=== PATIENT | female | born 1940 | race Caucasian/White ===

== ENCOUNTER 2022-03-11 09:03 | Observation (INO) ==
[2022-03-11] MEDS ORDERED: MoRPHine SULFATE 4 MG/ML 1 ML CARP\\VIAL IV STA (09:10)
[2022-03-11] MEDS ORDERED: ONDANSETRON INJ 2 MG/ML 2 ML VIAL IV STA (09:10)
--- NOTE | 2022-03-11 09:13 | Emergency Department Note ---
Impression & Plan Rib fractures, Adnexal mass, Fall ED Provider Note NAME: KAUR DANIELS AGE: 81 SEX: F : 1940 ARRIVES VIA: Ambulance INFORMANT: Patient ED PROVIDER(S): Renny Esparza DO CHIEF COMPLAINT: fall right chest wall pain HPI: Patient is a 81-year-old female who presents to the ER who was at the [facility] [place]. She got up in the middle of the night and lost her balance and fell onto her right side. She is having severe 10 out of 10 pain on the right ribs and right belly. She denies any bilateral hip knee or foot pain. No upper extremity pain. She does not believe she hit her head but does have a little bit of a headache on the right side. Denies any tingling or numbness. No other exacerbating or remitting factors other than pain is significantly worse with movement and improves with rest. Denies blood thinners. ROS: See above HPI for pertinent positives & negatives. A total of 10 systems reviewed and were otherwise negative. PAST MEDICAL HISTORY:See Below PAST SURGICAL HISTORY:See Below FAMILY HISTORY:See Below SOCIAL HISTORY:See Below HOME MEDICATIONS:See Below ALLERGIES:See Below VITALS:See Below PHYSICAL EXAMINATION: GENERAL: alert, well appearing, well nourished, no distress, non-toxic HEAD: normal cephalic, atraumatic EYE EXAM: normal conjunctiva, PERRL and EOM's grossly intact OROPHARYNX: no exudate, no erythema, lips, buccal mucosa, and tongue normal and mucous membranes are moist NECK: supple, no nuchal rigidity, no adenopathy, non-tender CHEST: stable to compression anteriorly and posteriorly was with severe reproducible pain over the right lateral chest wall tracking into the right upper abdomen LUNGS: clear to auscultation. Normal chest wall mechanics HEART: no murmurs, S1 normal and S2 normal ABDOMEN: abdomen soft, non-tender, normo-active bowel sounds, no masses, no rebound or guarding. PELVIS: stable to compression anteriorly and posteriorly BACK: Back is symmetrical on inspection and there is no deformity, no midline tenderness, no CVA tenderness. UPPER EXTREMITIES: full active and passive range of motion of all joints without tenderness to palpation LOWER EXTREMITIES: full active and passive range of motion of all joints without tenderness to palpation NEURO EXAM: Normal sensorium, cranial nerves II-XII grossly intact, normal speech, no gross weakness of arms, no gross weakness of legs. GCS: 15. MEDICAL DECISION MAKING: Patient is a 81-year-old female who presents ER following mechanical fall last night in the dark tent. IV was established blood was obtained. Labs show no significant leukocytosis or anemia. BMP along with LFTs bilirubin was unremarkable. UA was clean. COVID was negative. CT of the head, chest abdomen pelvis shows multiple right-sided rib fractures x3. No hemopneumothorax. Patient was given IV morphine. She did desat. She is comfortable as long as she was not moving. She did not get around at home and consult was discussed with the hospitalist Dr. Stew Roberts for further observation. Of note the CT of the abdomen pelvis did show a left adnexal mass which was discussed with the patient and the hospitalist as well. Triage Nursing notes reviewed. Limited review of prior medical records performed Vital Signs: reviewed and remarkable for no significant abnormalities Differential diagnosis: Differential diagnoses include major intracranial, cervical, spinal, thoracic, abdominal, pelvic and neurologic injury. Fracture, contusion, sprain, strain, laceration, abrasions included as well. ER treatment provided: See below Diagnostics interpreted by me: ECG: none Cardiac Monitoring: An order was placed for continuous cardiac monitoring. The monitor shows a rate of 62 with sinus rhythm. Laboratory studies: As stated above and show below. Imaging studies: CT head, chest cervical spine, abdomen pelvis shows 3 rib fractures Consultation(s): Discussed with Dr. Stew Roberts for further evaluation Procedures: none Critical Care: None Past Med/Surg History Medical History (Updated 03/11/22 @ 15:30 by Renny Esparza DO) Adnexal mass Arthritis Depression Diabetes HLD (hyperlipidemia) HTN (hypertension) Obesity Surgical History (Updated 03/11/22 @ 13:24 by KAYLIE Espana) Total knee replacement status Family History (Updated 03/11/22 @ 13:24 by KAYLIE Espana) Other Family history non-contributory Social History Smoking Status: Never smoker Feels Safe at Home: Yes Allergies Allergies Allergy/AdvReac Type Severity Reaction Status Date / Time latex Allergy Intermediate Rash Unverified 03/11/22 13:02 Penicillins Allergy Intermediate Rash all Unverified 03/11/22 13:02 over body Home Meds Home Medications Medication Instructions Recorded Confirmed acetaminophen 650 mg 1,300 mg PO BID 03/11/22 03/11/22 tablet,extended release atenolol 25 mg tablet 25 mg PO QAM 03/11/22 03/11/22 calcium carbonate 600 mg-vitamin 2 tab PO QAM 03/11/22 03/11/22 D3 10 mcg (400 unit) tablet (Calcium 600 + D(3)) citalopram 20 mg tablet 20 mg PO HS 03/11/22 03/11/22 diphenhydramine HCl 25 mg tablet 25 mg PO QAM 03/11/22 03/11/22 (Allergy) empagliflozin 25 mg tablet 25 mg PO QAM 03/11/22 03/11/22 (Jardiance) glucosamine-chondroitin 250 mg-200 2 tab PO QA 03/11/22 03/11/22 mg tablet (Osteo Bi-Flex) hydrochlorothiazide 25 mg tablet 25 mg PO QAM 03/11/22 03/11/22 melatonin 10 mg capsule 10 mg PO 03/11/22 03/11/22 omeprazole 20 mg capsule,delayed 20 mg PO QAM 03/11/22 03/11/22 release simvastatin 40 mg tablet 40 mg PO 03/11/22 03/11/22 sitagliptin 50 mg tablet (Januvia) 50 mg PO QAM 03/11/22 03/11/22 valsartan 40 mg tablet 40 mg PO QAM 03/11/22 03/11/22 Results & Data (ED) Vital Signs Vital Signs - 24 hr 03/11/22 08:52 Temperature 36.9 C Temperature Source Oral Pulse Rate 59 L Respiratory Rate 21 Respiratory Effort / Characteristics Non-Labored Respiratory Depth Normal Respiratory Pattern Regular Blood Pressure 144/68 H Blood Pressure Mean 93 Pulse Oximetry 94 Oxygen Delivery Method Room Air Sepsis Recent Fever Within 48 Hours No Sepsis New/Unexplained Change in Mental Status N/A Sepsis Action Taken by Nursing No Action Required Laboratory Data Result diagrams: 03/11/22 09:25 03/11/22 09:25 Lab Results 03/11/22 03/11/22 03/11/22 Range/Units 09:25 09:25 09:32 WBC 8.08 (4.8-10.8) K/ul RBC 4.56 (3.93-5.22) M/uL Hgb 13.5 (12.0-16.0) g/dl POC Hgb 13.6 (12.0-16.0) g/dl Hct 40.8 (34.1-44.9) % POC Hct 40 (37-47) % MCV 89.5 (80.0-100.0) fL MCH 29.6 (25.0-34.0) pg MCHC 33.1 (32.0-36.0) g/dL RDW Std Deviation 39.9 (36.4-46.3) fL RDW Coeff of Lauro 12.2 (11.5-14.5) % Plt Count 142 (130-400) K/uL MPV 9.7 (9.4-12.3) fL Immature Gran % (Auto) 0.4 % Neut % (Auto) 81.9 % Lymph % (Auto) 12.1 % Burleigh % (Auto) 5.2 % Eos % (Auto) 0.2 % Baso % (Auto) 0.2 % Neut # (Auto) 6.61 H (1.4-6.5) K/uL Lymph # (Auto) 0.98 L (1.2-3.4) K/uL Burleigh # (Auto) 0.42 (0.24-0.82) K/uL Eos # (Auto) 0.02 (0-0.50) K/uL Baso # (Auto) 0.02 (0-0.2) K/uL Immature Gran # (Auto) 0.03 H (0.00-0.02) K/uL POC Sodium 142 (135-144) mmol/L Sodium 143 (136-145) mmol/L POC Potassium 4.0 (3.3-5.0) mmol/L Potassium 4.0 (3.5-5.1) mmol/L POC Chloride 101 (101-112) mmol/L Chloride 104 (98-107) mmol/L Carbon Dioxide 32 (21-32) mmol/L POC Total CO2 29 (24-31) mmol/L Anion Gap 7 (3-11) POC Anion Gap 18.0 (16-25) mmol/L POC BUN 18 (7-18) mg/dl BUN 19 (6-23) mg/dl Creatinine 1.05 (0.6-1.2) mg/dl POC Creatinine 1.0 (0.6-1.3) mg/dl Est Cr Clr Drug Dosing 48.4 ml/min Est GFR ( Amer) 58.5 ml/min Est GFR (Non-Af Amer) 50.5 ml/min BUN/Creatinine Ratio 18.1 (10-20) Glucose 178 H (70-99(Fasting)) mg/dl POC Glucose (other) 186 H (70-99) mg/dl Calcium 9.3 (8.5-10.1) mg/dl POC Ioniz Calcium Juan 1.18 (1.12-1.32) mmol/l Total Bilirubin 0.7 (0.2-1.0) mg/dl AST 22 (13-39) U/L ALT 18 (7-52) U/L Alkaline Phosphatase 55 (34-104) U/L Total Protein 6.6 (6.0-8.3) gm/dl Albumin 4.1 (3.4-5.0) gm/dl Globulin 2.5 (2.5-4.0) gm/dl Albumin/Globulin Ratio 1.6 (0.9-2) Urine Color Urine Appearance (Clear) Urine pH (4.5-7.5) Ur Specific [place] (1.000-1.030) Urine Protein (Negative) Urine Glucose (UA) (Negative) Urine Ketones (Negative) Urine Blood (Negative) Urine Nitrite (Negative) Urine Bilirubin (Negative) Urine Urobilinogen (Negative) Ur Leukocyte Esterase (Negative) SARS-CoV-2, RNA, NAAT (NEGATIVE) 03/11/22 03/11/22 Range/Units 09:59 10:58 WBC (4.8-10.8) K/ul RBC (3.93-5.22) M/uL Hgb (12.0-16.0) g/dl POC Hgb (12.0-16.0) g/dl Hct (34.1-44.9) % POC Hct (37-47) % MCV (80.0-100.0) fL MCH (25.0-34.0) pg MCHC (32.0-36.0) g/dL RDW Std Deviation (36.4-46.3) fL RDW Coeff of Lauro (11.5-14.5) % Plt Count (130-400) K/uL MPV (9.4-12.3) fL Immature Gran % (Auto) % Neut % (Auto) % Lymph % (Auto) % [place]leigh % (Auto) % Eos % (Auto) % Baso % (Auto) % Neut # (Auto) (1.4-6.5) K/uL Lymph # (Auto) (1.2-3.4) K/uL [place]leigh # (Auto) (0.24-0.82) K/uL Eos # (Auto) (0-0.50) K/uL Baso # (Auto) (0-0.2) K/uL Immature Gran # (Auto) (0.00-0.02) K/uL POC Sodium (135-144) mmol/L Sodium (136-145) mmol/L POC Potassium (3.3-5.0) mmol/L Potassium (3.5-5.1) mmol/L POC Chloride (101-112) mmol/L Chloride (98-107) mmol/L Carbon Dioxide (21-32) mmol/L POC Total CO2 (24-31) mmol/L Anion Gap (3-11) POC Anion Gap (16-25) mmol/L POC BUN (7-18) mg/dl BUN (6-23) mg/dl Creatinine (0.6-1.2) mg/dl POC Creatinine (0.6-1.3) mg/dl Est Cr Clr Drug Dosing ml/min Est GFR ( Amer) ml/min Est GFR (Non-Af Amer) ml/min BUN/Creatinine Ratio (10-20) Glucose (70-99(Fasting)) mg/dl POC Glucose (other) (70-99) mg/dl Calcium (8.5-10.1) mg/dl POC Ioniz Calcium Juan (1.12-1.32) mmol/l Total Bilirubin (0.2-1.0) mg/dl AST (13-39) U/L ALT (7-52) U/L Alkaline Phosphatase (34-104) U/L Total Protein (6.0-8.3) gm/dl Albumin (3.4-5.0) gm/dl Globulin (2.5-4.0) gm/dl Albumin/Globulin Ratio (0.9-2) Urine Color Yellow Urine Appearance Clear (Clear) Urine pH 6.5 (4.5-7.5) Ur Specific [place] 1.032 H (1.000-1.030) Urine Protein Negative (Negative) Urine Glucose (UA) 3+ H (Negative) Urine Ketones Negative (Negative) Urine Blood Negative (Negative) Urine Nitrite Negative (Negative) Urine Bilirubin Negative (Negative) Urine Urobilinogen Negative (Negative) Ur Leukocyte Esterase Negative (Negative) SARS-CoV-2, RNA, NAAT NEGATIVE (NEGATIVE) Administered Medications Discontinued Medications Ioversol (Optiray 300 100ml) 82 ml IV ONCE ONE Stop: 03/11/22 10:49 Last Admin: 03/11/22 10:55 Dose: 82 ml Documented By: MERCY Morphine Sulfate (Morphine Sulfate 4 Mg/Ml 1 Ml Carp\Vial) 4 mg IV NOW STA Stop: 03/11/22 09:11 Last Admin: 03/11/22 09:56 Dose: 4 mg Documented By: JUAN C Ondansetron HCl (Ondansetron Inj 2 Mg/Ml 2 Ml Vial) 4 mg IV NOW STA Stop: 03/11/22 09:11 Last Admin: 03/11/22 09:54 Dose: 4 mg Documented By: JUAN C Imaging Data Radiologist's Impression: Chest X-Ray 03/11/22 09:10 SINGLE VIEW CHEST CLINICAL HISTORY: Trauma. Fall. FINDINGS: An AP, portable, upright chest radiograph is obtained. No prior studies are available for comparison at the time of dictation. The examination is degraded by portable technique and apical lordotic positioning. The heart is enlarged noting atherosclerotic calcification of the thoracic aorta. There is pulmonary vascular congestion. Scarring/atelectasis is seen at the lung bases. The lungs and pleural spaces are otherwise clear. No pneumothorax is seen. The skeletal structures are osteopenic. The bony thorax is grossly intact. IMPRESSION: 1. Cardiomegaly with pulmonary vascular congestion. 2. No airspace consolidation or large pleural effusion is identified. ACT 112: Negative or not required by law. Electronically signed by: Tod Yan M.D. 03/11/2022 10:18 AM Abdomen/Pelvis CT 03/11/22 09:11 CT SCAN OF THE CHEST, ABDOMEN, AND PELVIS WITH IV CONTRAST CLINICAL HISTORY: Trauma. COMPARISON STUDY: Chest x-ray dated 03/11/2022. TECHNIQUE: Following the IV administration of 82 of Optiray 300, CT scan of the chest, abdomen, and pelvis was performed from the thoracic inlet to the proximal femora. Images are reviewed in the axial, sagittal, and coronal planes. IV contrast was administered without complication. A dose lowering technique was utilized adhering to the principles of ALARA. FINDINGS: CHEST: Thyroid: Atrophic. Thoracic aorta: There is atherosclerotic calcification of the thoracic aorta, which is normal in caliber and demonstrates standard 3-vessel arch anatomy. No dissection is seen. Pulmonary vasculature: The pulmonary trunk is normal in caliber. There are no filling defects identified in the central pulmonary vessels to indicate pulmonary embolus. Note that this examination was not protocoled for evaluation of the pulmonary arteries. Heart: The heart is enlarged and without pericardial effusion. The coronary arteries and mitral annulus are densely calcified. Lungs and pleural spaces: There is no airspace consolidation, pleural effusion, or pneumothorax. Dependent scarring/atelectasis is noted at the lung bases. The trachea and central airways are clear. Mediastinum: There is no mediastinal hematoma or lymphadenopathy. Pattie: Clear. Axillae: There is no axillary lymphadenopathy. Bony thorax: The skeletal structures are osteopenic. There is a nondisplaced fracture of the right posterior 10th, 11th, and 12th ribs. No lytic or blastic lesions are identified. Arthritic change is seen in the shoulders. ABDOMEN AND PELVIS: Liver: The contrast-enhanced liver is enlarged, measuring 19.3 cm in length. The liver demonstrates diffusely diminished attenuation indicating hepatic steatosis. There is no intra- or extrahepatic biliary ductal dilatation. The hepatic veins and portal veins are patent. Gallbladder: Surgically absent noting clips in the gallbladder fossa. Spleen: Normal in size and attenuation. Pancreas: The pancreas is moderately atrophic. A 13 mm simple cystic lesion in the pancreatic head likely represents a small sidebranch IPMN. The duct is normal in caliber. Adrenal glands: Unremarkable. Kidneys: The contrast enhanced kidneys demonstrate mild cortical atrophy and are without hydronephrosis. The kidneys enhance symmetrically. Left renal cysts measure up to 5 cm. Additional subcentimeter cortical hypodensities also likely represent cysts but are too small for definitive characterization. Abdominal vasculature: The abdominal aorta is normal in course and caliber noting moderate to advanced atherosclerotic calcification. Stomach and bowel: There is a small hiatal hernia. There is mild to moderate colonic diverticulosis without CT evidence of acute diverticulitis. No bowel obstruction is seen. The appendix is well-visualized and normal. Peritoneum: There is no intraperitoneal free air or abdominal ascites. Lymphadenopathy: None. Pelvic viscera: The bladder is decompressed and grossly unremarkable. The uterus is surgically absent. There is a cystic lesion in the left pelvis seen on image #329. This measures approximately 4.5 x 6 x 5 cm and contains a 3.6 cm enhancing nodule seen on image #339. This is likely related to the left ovary. Small cystic foci in the right ovary measure up to 1.8 cm. Skeletal structures: The skeletal structures are osteopenic. The lumbosacral sp ine, bony pelvis, and proximal femora appear intact. There is moderate lumbosacral spondylosis. No lytic or blastic lesions are seen. IMPRESSION: 1. There is an approximately 6 cm cystic lesion with an enhancing mural nodule in the left adnexa. Ovarian neoplasm is the diagnosis of exclusion. Gynecological surgical evaluation is advised. 2. There are acute nondisplaced right posterior 10th, 11th, and 12th rib fractures. 3. There is no airspace consolidation, pleural effusion, or pneumothorax. 4. Cardiomegaly. 5. There is no evidence of solid organ injury in the abdomen or pelvis. 6. Hepatomegaly and hepatic steatosis. 7. Colonic diverticulosis without CT evidence of acute diverticulitis. 8. Additional findings as above. ACT 112: Positive. There are findings on this exam that require communication between the performing entity and the patient following Patient Test Result Information Act ([place] Act 112) guidelines. Electronically signed by: Tod Yan M.D. 03/11/2022 11:[address] 03/11/22 09:11 CT OF THE CERVICAL SPINE WITHOUT CONTRAST CLINICAL HISTORY: Trauma. COMPARISON STUDY: No previous studies for comparison. TECHNIQUE: Helical axial images of the cervical spine were obtained without IV contrast. Sagittal and coronal reconstructions were viewed. Automated exposure control was utilized for the study. A dose lowering technique was utilized adhering to the principles of ALARA. FINDINGS: There is reversal of the normal cervical lordosis. Vertebral body heights are maintained. No acute cervical spine fracture or subluxation is pr esent. There is no prevertebral edema. Facet joints are intact. Severe multilevel facet arthrosis is noted. There is moderate to severe multilevel degenerative disc disease with disc space narrowing and osteophytosis. IMPRESSION: No acute cervical spine fracture or subluxation. ACT 112: Negative or not required by law. Electronically signed by: Temo Odell M.D. 03/11/2022 11:[address] 03/11/22 09:11 CT SCAN OF THE CHEST, ABDOMEN, AND PELVIS WITH IV CONTRAST CLINICAL HISTORY: Trauma. COMPARISON STUDY: Chest x-ray dated 03/11/2022. TECHNIQUE: Following the IV administration of 82 of Optiray 300, CT scan of the chest, abdomen, and pelvis was performed from the thoracic inlet to the proximal femora. Images are reviewed in the axial, sagittal, and coronal planes. IV contrast was administered without complication. A dose lowering technique was utilized adhering to the principles of ALARA. FINDINGS: CHEST: Thyroid: Atrophic. Thoracic aorta: There is atherosclerotic calcification of the thoracic aorta, which is normal in caliber and demonstrates standard 3-vessel arch anatomy. No dissection is seen. Pulmonary vasculature: The pulmonary trunk is normal in caliber. There are no filling defects identified in the central pulmonary vessels to indicate pulmonary embolus. Note that this examination was not protocoled for evaluation of the pulmonary arteries. Heart: The heart is enlarged and without pericardial effusion. The coronary arteries and mitral annulus are densely calcified. Lungs and pleural spaces: There is no airspace consolidation, pleural effusion, or pneumothorax. Dependent scarring/atelectasis is noted at the lung bases. The trachea and central airways are clear. Mediastinum: There is no mediastinal hematoma or lymphadenopathy. Pattie: Clear. Axillae: There is no axillary lymphadenopathy. Bony thorax: The skeletal structures are osteopenic. There is a nondisplaced fracture of the right posterior 10th, 11th, and 12th ribs. No lytic or blastic lesions are identified. Arthritic change is seen in the shoulders. ABDOMEN AND PELVIS: Liver: The contrast-enhanced liver is enlarged, measuring 19.3 cm in length. The liver demonstrates diffusely diminished attenuation indicating hepatic steatosis. There is no intra- or extrahepatic biliary ductal dilatation. The hepatic veins and portal veins are patent. Gallbladder: Surgically absent noting clips in the gallbladder fossa. Spleen: Normal in size and attenuation. Pancreas: The pancreas is moderately atrophic. A 13 mm simple cystic lesion in the pancreatic head likely represents a small sidebranch IPMN. The duct is normal in caliber. Adrenal glands: Unremarkable. Kidneys: The contrast enhanced kidneys demonstrate mild cortical atrophy and are without hydronephrosis. The kidneys enhance symmetrically. Left renal cysts measure up to 5 cm. Additional subcentimeter cortical hypodensities also likely represent cysts but are too small for definitive characterization. Abdominal vasculature: The abdominal aorta is normal in course and caliber noting moderate to advanced atherosclerotic calcification. Stomach and bowel: There is a small hiatal hernia. There is mild to moderate colonic diverticulosis without CT evidence of acute diverticulitis. No bowel obstruction is seen. The appendix is well-visualized and normal. Peritoneum: There is no intraperitoneal free air or abdominal ascites. Lymphadenopathy: None. Pelvic viscera: The bladder is decompressed and grossly unremarkable. The uterus is surgically absent. There is a cystic lesion in the left pelvis seen on image #329. This measures approximately 4.5 x 6 x 5 cm and contains a 3.6 cm enhancing nodule seen on image #339. This is likely related to the left ovary. Small cystic foci in the right ovary measure up to 1.8 cm. Skeletal structures: The skeletal structures are osteopenic. The lumbosacral spine, bony pelvis, and proximal femora appear intact. There is moderate lumbosacral spondylosis. No lytic or blastic lesions are seen. IMPRESSION: 1. There is an approximately 6 cm cystic lesion with an enhancing mural nodule in the left adnexa. Ovarian neoplasm is the diagnosis of exclusion. Gynecological surgical evaluation is advised. 2. There are acute nondisplaced right posterior 10th, 11th, and 12th rib fractures. 3. There is no airspace consolidation, pleural effusion, or pneumothorax. 4. Cardiomegaly. 5. There is no evidence of solid organ injury in the abdomen or pelvis. 6. Hepatomegaly and hepatic steatosis. 7. Colonic diverticulosis without CT evidence of acute diverticulitis. 8. Additional findings as above. ACT 112: Positive. There are findings on this exam that require communication between the performing entity and the patient following Patient Test Result Information Act ([place] Act 112) guidelines. Electronically signed by: Tod Yan M.D. 03/11/2022 11:[address] 03/11/22 09:11 CT head/brain wo con CLINICAL HISTORY: Trauma Technique: Contiguous axial CT images of the head were acquired from the base of the skull to the vertex without intravenous contrast administration. Images were viewed in brain, subdural and bone windows. Automated dose lowering techniques and/or adjustment according to patient size were utilized for this exam. Comparison: None available at the time of this dictation. Findings: The ventricles, basal cisterns, and cerebral sulci are normal. There is no acute intracranial hemorrhage or evidence of acute territorial infarction. Neither mass effect, shift of the midline structures, nor abnormal extra-axial fluid collections are shown. Imaged portions of the paranasal sinuses and mastoid air cells are clear. The orbits appear normal. There are no acute fractures of the calvaria or scalp swelling. Impression: No acute intracranial hemorrhage, no evidence of acute territorial infarction or other acute intracranial disease process. ACT 112: Negative or not required by law. Electronically signed by: Sawyer Johnson M.D. 03/11/2022 11:05 AM Discharge Plan Visit Data Chief Complaint: Fall ED Provider: Renny Esparza Discharge Problem: Rib fractures, Adnexal mass, Fall Forms Stand Alone Forms: My [facility] Prescriptions Prescriptions: No Action atenolol 25 mg tablet 25 mg PO QAM simvastatin 40 mg tablet 40 mg PO HS citalopram 20 mg tablet 20 mg PO HS hydrochlorothiazide 25 mg tablet 25 mg PO QAM valsartan 40 mg tablet 40 mg PO QAM Januvia 50 mg tablet 50 mg PO QAM Jardiance 25 mg tablet 25 mg PO QAM acetaminophen [Tylenol Arthritis] 650 mg Tablet Extended Release 1,300 mg PO BID diphenhydramine HCl [Allergy] 25 mg Tablet 25 mg PO QAM omeprazole 20 mg Capsule,Delayed Release(Dr/Ec) 20 mg PO QAM glucosamine-chondroitin [Osteo Bi-Flex] 250-200 mg Tablet 2 tab PO QAM calcium carbonate-vitamin D3 [Calcium 600 + D(3)] 600 mg-10 mcg (400 unit) Tablet 2 tab PO QAM melatonin 10 mg Capsule 10 mg PO HS Referrals Referrals: PCP,NO [Primary Care Provider] -
[2022-03-11 09:45] LABS: iSTAT Hemoglobin 13.6 g/dl (12.0-16.0); iSTAT Ionized Calcium 1.18 mmol/l (1.12-1.32)
[2022-03-11 09:55] LABS: Hematocrit (blood only) 40.8 % (34.1-44.9); Hemoglobin 13.5 g/dl (12.0-16.0); Mean Corpuscular Hemoglobin 29.6 pg (25.0-34.0); Mean Corpuscular Hgb Conc 33.1 g/dL (32.0-36.0); Mean Corpuscular Volume 89.5 fL (80.0-100.0); Mean Platelet Volume 9.7 fL (9.4-12.3); Platelet Count 142 K/uL (130-400); RDW Coefficient of Variation 12.2 % (11.5-14.5); RDW Standard Deviation 39.9 fL (36.4-46.3); Red Blood Count 4.56 M/uL (3.93-5.22); White Blood Count 8.08 K/ul (4.8-10.8)
[2022-03-11 10:11] LABS: Basophils # (auto) 0.02 K/uL (0-0.2); Basophils % (auto) 0.2 %; Eosinophils # (auto) 0.02 K/uL (0-0.50); Eosinophils % (auto) 0.2 %; Immature Granulocytes # (auto) 0.03 K/uL (0.00-0.02); Immature Granulocytes % (auto) 0.4 %; Lymphocytes # (auto) 0.98 K/uL (1.2-3.4); Lymphocytes % (auto) 12.1 %; Monocytes # (auto) 0.42 K/uL (0.24-0.82); Monocytes % (auto) 5.2 %; Neutrophils # (auto) 6.61 K/uL (1.4-6.5); Neutrophils % (auto) 81.9 %
--- NOTE | 2022-03-11 10:19 | XRay Report ---
SINGLE VIEW CHEST CLINICAL HISTORY: Trauma. Fall. FINDINGS: An AP, portable, upright chest radiograph is obtained. No prior studies are available for c omparison at the time of dictation. The examination is degraded by portable technique and apical lord otic positioning. The heart is enlarged noting atherosclerotic calcification of the thoracic aorta. T here is pulmonary vascular congestion. Scarring/atelectasis is seen at the lung bases. The lungs and pleural spaces are otherwise clear. No pneumothorax is seen. The skeletal structures are osteopenic. The bony thorax is grossly intact. IMPRESSION: 1. Cardiomegaly with pulmonary vascular congestion. 2. No airspace consolidation or large pleural effusion is identified. ACT 112: Negative or not required by law. Electronically signed by: Tod Yan M.D. 03/11/2022 10:18 AM
[2022-03-11 10:27] LABS: Albumin Globulin Ratio 1.6 (0.9-2); Albumin Level 4.1 gm/dl (3.4-5.0); BUN Creatinine Ratio 18.1 (10-20); Bilirubin,Total 0.7 mg/dl (0.2-1.0); Calcium 9.3 mg/dl (8.5-10.1); Creatinine Clr Calc Pharmacy 48.4 ml/min; Est GFR (African American) 58.5 ml/min; Est GFR (Non-African American) 50.5 ml/min; Globulin 2.5 gm/dl (2.5-4.0); Total Protein 6.6 gm/dl (6.0-8.3)
[2022-03-11] MEDS ORDERED: OPTIRAY 300 100mL IV ONE (10:48)
--- NOTE | 2022-03-11 11:07 | CT Scan Report ---
CT head/brain wo con CLINICAL HISTORY: Trauma Technique: Contiguous axial CT images of the head were acquired from the base of the skull to the sandy becky without intravenous contrast administration. Images were viewed in brain, [facility] and [facility] Automated dose lowering techniques and/or adjustment according to patient size were utilized for this exam. Comparison: None available at the time of this dictation. Findings: The ventricles, basal cisterns, and cerebral sulci are normal. There is no acute intracranial hemorrh age or evidence of acute territorial infarction. Neither mass effect, shift of the midline structures , nor abnormal extra-axial fluid collections are shown. Imaged portions of the paranasal sinuses and mastoid air cells are clear. The orbits appear normal. There are no acute fractures of the calvaria or scalp swelling. Impression: No acute intracranial hemorrhage, no evidence of acute territorial infarction or other acute intracra nial disease process. ACT 112: Negative or not required by law. Electronically signed by: Sawyer Johnson M.D. 03/11/2022 11:05 AM
[2022-03-11 11:16] LABS: Appearance Urine Clear (Clear); Bilirubin Urine Negative (Negative); Blood Urine Negative (Negative); Color Urine Yellow; Glucose Urine UA 3+ (Negative); Ketones Urine Negative (Negative); Leukocyte Esterase Urine Negative (Negative); Nitrite Urine Negative (Negative); Protein Urine Negative (Negative); Specific Gravity Urine 1.032 (1.000-1.030); Urobilinogen Urine Negative (Negative); pH Urine 6.5 (4.5-7.5)
--- NOTE | 2022-03-11 11:22 | CT Scan Report ---
CT SCAN OF THE CHEST, ABDOMEN, AND PELVIS WITH IV CONTRAST CLINICAL HISTORY: Trauma. COMPARISON STUDY: Chest x-ray dated 03/11/2022. TECHNIQUE: Following the IV administration of 82 of Optiray 300, CT scan of the chest, abdomen, and p meghan was performed from the thoracic inlet to the proximal femora. Images are reviewed in the axial, sagittal, and coronal planes. IV contrast was administered without complication. A dose lowering te [place] was utilized adhering to the principles of ALARA. FINDINGS: CHEST: Thyroid: Atrophic. Thoracic aorta: There is atherosclerotic calcification of the thoracic aorta, which is normal in cassi angelica and demonstrates standard 3-vessel arch anatomy. No dissection is seen. Pulmonary vasculature: The pulmonary trunk is normal in caliber. There are no filling defects identif ied in the central pulmonary vessels to indicate pulmonary embolus. Note that this examination was no t protocoled for evaluation of the pulmonary arteries. Heart: The heart is enlarged and without pericardial effusion. The coronary arteries and mitral annul us are densely calcified. Lungs and pleural spaces: There is no airspace consolidation, pleural effusion, or pneumothorax. Depe ndent scarring/atelectasis is noted at the lung bases. The trachea and central airways are clear. Mediastinum: There is no mediastinal hematoma or lymphadenopathy. Pattie: Clear. Axillae: There is no axillary lymphadenopathy. Bony thorax: The skeletal structures are osteopenic. There is a nondisplaced fracture of the right po sterior 10th, 11th, and 12th ribs. No lytic or blastic lesions are identified. Arthritic change is se en in the shoulders. ABDOMEN AND PELVIS: Liver: The contrast-enhanced liver is enlarged, measuring 19.3 cm in length. The liver demonstrates d iffusely diminished attenuation indicating hepatic steatosis. There is no intra- or extrahepatic bili allison ductal dilatation. The hepatic veins and portal veins are patent. Gallbladder: Surgically absent noting clips in the gallbladder fossa. Spleen: Normal in size and attenuation. Pancreas: The pancreas is moderately atrophic. A 13 mm simple cystic lesion in the pancreatic head li evan represents a small sidebranch IPMN. The duct is normal in caliber. Adrenal glands: Unremarkable. Kidneys: The contrast enhanced kidneys demonstrate mild cortical atrophy and are without hydronephros is. The kidneys enhance symmetrically. Left renal cysts measure up to 5 cm. Additional subcentimeter cortical hypodensities also likely represent cysts but are too small for definitive characterization. Abdominal vasculature: The abdominal aorta is normal in course and caliber noting moderate to advance d atherosclerotic calcification. Stomach and bowel: There is a small hiatal hernia. There is mild to moderate colonic diverticulosis w ithout CT evidence of acute diverticulitis. No bowel obstruction is seen. The appendix is well-visua lized and normal. Peritoneum: There is no intraperitoneal free air or abdominal ascites. Lymphadenopathy: None. Pelvic viscera: The bladder is decompressed and grossly unremarkable. The uterus is surgically absent . There is a cystic lesion in the left pelvis seen on image #329. This measures approximately 4.5 x 6 x 5 cm and contains a 3.6 cm enhancing nodule seen on image #339. This is likely related to the left ovary. Small cystic foci in the right ovary measure up to 1.8 cm. Skeletal structures: The skeletal structures are osteopenic. The lumbosacral spine, bony pelvis, and proximal femora appear intact. There is moderate lumbosacral spondylosis. No lytic or blastic lesions are seen. IMPRESSION: 1. There is an approximately 6 cm cystic lesion with an enhancing mural nodule in the left adnexa. Ov alysha neoplasm is the diagnosis of exclusion. Gynecological surgical evaluation is advised. 2. There are acute nondisplaced right posterior 10th, 11th, and 12th rib fractures. 3. There is no airspace consolidation, pleural effusion, or pneumothorax. 4. Cardiomegaly. 5. There is no evidence of solid organ injury in the abdomen or pelvis. 6. Hepatomegaly and hepatic steatosis. 7. Colonic diverticulosis without CT evidence of acute diverticulitis. 8. Additional findings as above. ACT 112: Positive. There are findings on this exam that require communication between the performing entity and the patient following Patient Test Result Information Act ([place] Act 112) guidelines. Electronically signed by: Tod Yan M.D. 03/11/2022 11:20 AM
--- NOTE | 2022-03-11 11:30 | CT Scan Report ---
CT OF THE CERVICAL SPINE WITHOUT CONTRAST CLINICAL HISTORY: Trauma. COMPARISON STUDY: No previous studies for comparison. TECHNIQUE: Helical axial images of the cervical spine were obtained without IV contrast. Sagittal a nd coronal reconstructions were viewed. Automated exposure control was utilized for the study. A do se lowering technique was utilized adhering to the principles of ALARA. FINDINGS: There is reversal of the normal cervical lordosis. Vertebral body heights are maintained. N o acute cervical spine fracture or subluxation is present. There is no prevertebral edema. Facet join ts are intact. Severe multilevel facet arthrosis is noted. There is moderate to severe multilevel de generative disc disease with disc space narrowing and osteophytosis. IMPRESSION: No acute cervical spine fracture or subluxation. ACT 112: Negative or not required by law. Electronically signed by: Temo Odell M.D. 03/11/2022 11:28 AM
--- NOTE | 2022-03-11 12:43 | History & Physical Report ---
Date of Service March 11, 2022 Assessment & Plan (1) Rib fractures: Plan: Acute non displaced rib fractures, without flail chest or pneumo/hemothorax - admission for pain control and pulmonary toilet - Pain control with scheduled tylneol, Lidocaine, prn toradol, prn oxy - with rescue Narcan available - Provide splinting instructions and splint to patient to assist with chest wall expansion and movement - PT/OT recruiting and selection consultant (2) Adnexal mass: Plan: Incidental finding on abd/pelvis CT scan Hysterectomy in her 40s for abnormal uterine bleeding Provide imaging for discharge- follow up with PCP and OBGYN - she has not followed with OBGYN for years (3) HLD (hyperlipidemia): Plan: Continue Simvastatin (4) Obesity: Plan: Continue modification of morbidities as above glucose control lipids bp control weight loss encouraged (5) Diabetes: Plan: DMII- hold oral agents at this time - aspart sliding scale while in house (6) Depression: Plan: Controlled per patient continue escitalopram (7) HTN (hypertension): Plan: Continue ARB and HCTZ History of Present Illness Primary Care Provider: NO PCP 81 YOF with medical history of: Acoustic Neuroma, HTN, HLD, Hypothyroidism, DM (on oral agents), Depression, seasonal allergies, bilateral knee replacements. Patient was at the [facility], when she got up in the middle of the night to go to the bathroom, lost her balance in the tent, fell on to her right side and rolled to the other side of the tent and hit the railing on the bed. She had pain to her right lateral chest wall, got ice and tried to go back to sleep. She got up this morning in more pain and came to the EMD. In the EMD she had routine labs performed, CT scan of chest, cervical spine, head, abdomen pelvis, and CXR. She was noted to have right sided nondisplaced right posterior 10th, 11th, and 12th rib fractures, and incidental finding of 6 cm cystic lesion with an enhancing mural nodule in the left adnexa. She was given 4mg of morphine for pain without any other modality and hospitalist was consulted for admission. Patient will be admitted to medical telemetry floor for tiered pain control, deep breathing, and splinting of her rib fractures. COVID test on admission: Allergies Allergy/AdvReac Type Severity Reaction Status Date / Time latex Allergy Intermediate Rash Unverified 03/11/22 13:02 Penicillins Allergy Intermediate Rash all Unverified 03/11/22 13:02 over body Home Medications Medication Instructions Recorded Confirmed Type atenolol 25 mg tablet 25 mg PO QAM 03/11/22 03/11/22 History calcium carbonate 600 mg-vitamin 2 tab PO QAM 03/11/22 03/11/22 History D3 10 mcg (400 unit) tablet (Calcium 600 + D(3)) citalopram 20 mg tablet 20 mg PO HS 03/11/22 03/11/22 History diphenhydramine HCl 25 mg tablet 25 mg PO QAM 03/11/22 03/11/22 History (Allergy) empagliflozin 25 mg tablet 25 mg PO QAM 03/11/22 03/11/22 History (Jardiance) glucosamine-chondroitin 250 mg-200 2 tab PO QAM 03/11/22 03/11/22 History mg tablet (Osteo Bi-Flex) hydrochlorothiazide 25 mg tablet 25 mg PO QAM 03/11/22 03/11/22 History melatonin 10 mg capsule 10 mg PO HS 03/11/22 03/11/22 History omeprazole 20 mg capsule,delayed 20 mg PO QAM 03/11/22 03/11/22 History release simvastatin 40 mg tablet 40 mg PO HS 03/11/22 03/11/22 History sitagliptin 50 mg tablet (Januvia) 50 mg PO QAM 03/11/22 03/11/22 History valsartan 40 mg tablet 40 mg PO QAM 03/11/22 03/11/22 History acetaminophen 500 mg capsule 1,000 mg PO Q8H fever #10 caps 03/12/22 Rx lidocaine 5 % topical patch 1 patch transdermal QAM #15 ea 03/12/22 Rx oxycodone 5 mg tablet 5 mg PO Q6H PRN pain #16 tabs 03/12/22 Rx Past Med/Surg History Medical History (Updated 03/11/22 @ 15:30 by Renny Esparza DO) Adnexal mass Arthritis Depression Diabetes HLD (hyperlipidemia) HTN (hypertension) Obesity Surgical History (Updated 03/11/22 @ 13:24 by KAYLIE Espana) Total knee replacement status Family History (Updated 03/11/22 @ 13:24 by KAYLIE Espana) Other Family history non-contributory Social History Smoking Status: Never smoker Second Hand Exposure: No; Do You Dip or Chew Tobacco: No; Tobacco Cessation Education Requested by Patient: No Hx Alcohol Use: No Hx Substance Use: No Preferred Language: Thai Communication Ability: Effective 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 Beliefs That Will Affect Care: None Current Living Situation: Spouse Other Information That Helps Us Care for You: No Feels Safe at Home: Yes Safety Concerns: Feels Safe At This Time Assistive Devices: Walker Review of Systems Review of Systems: REVIEW OF SYSTEMS: Constitutional: No fever, sweats or chills Eyes: No diplopia, no worsening or blurred vision ENT: normal hearing, no trouble swallowing Respiratory: No cough, sputum, dyspnea at rest or on exertion Cardiovascular: No chest pain, tightness or palpitations Abdomen: No pain, nausea, vomiting, diarrhea or constipation Musculoskeletal:(+) right lateral chest wall pain, no calf pain, swelling Neurologic: (+) walks with walker for balance, No weakness, numbness/tingling, or balance problems Psychiatric: (+) depression Skin: No rash or itch Physical Exam Physical Exam: PHYSICAL EXAM: General: awake, alert, no apparent distress Head: Normocephalic, atraumatic ENT: PERRL, EOMI, no pharyngeal exudate, mucous membranes moist Neuro: AAO x 3, speech clear and appropriate, strength intact bilaterally 5/5, sensation intact and equal all extremities and dermatomes, no pronator drift Chest: equal rise and fall of the chest, no accessory muscle use, no heaves or thrills, clear to auscultation, on room air, Cardiac: Regular rate and rhythm, telemetry reviewed, skin warm dry, cap refill <3 seconds, peripheral pulses +2 no JVD, no murmur, no edema GI: NABS x 4 quadrants, soft, nontender to palpation, no rebound, guarding or tenderness : Spontaneously voiding, no pain, no CVA tenderness, MSK: right rib pain lower lateral chest wall, no cervical spine tenderness, full ROM, no hip or pelvic instability, no shoulder pain, no headache, no midline spine tenderness Psych: Normal mood and affect Skin: no rash or erythema Results & Data Results & Data ([facility]) Vital Signs (Past 12 Hours) Vital Signs Temp Pulse Resp BP Pulse Ox O2 Del Method 03/11/22 08:52 36.9 C 59 L 21 144/68 H 94 Room Air Laboratory Results Abnormal lab results 03/11/22 03/11/22 03/11/22 Range/Units 09:25 09:25 09:32 Neut # (Auto) 6.61 H (1.4-6.5) K/uL Lymph # (Auto) 0.98 L (1.2-3.4) K/uL Immature Gran # (Auto) 0.03 H (0.00-0.02) K/uL Glucose 178 H (70-99(Fasting)) mg/dl POC Glucose (other) 186 H (70-99) mg/dl Ur Specific [place] (1.000-1.030) Urine Glucose (UA) (Negative) 03/11/22 Range/Units 10:58 Neut # (Auto) (1.4-6.5) K/uL Lymph # (Auto) (1.2-3.4) K/uL Immature Gran # (Auto) (0.00-0.02) K/uL Glucose (70-99(Fasting)) mg/dl POC Glucose (other) (70-99) mg/dl Ur Specific [place] 1.032 H (1.000-1.030) Urine Glucose (UA) 3+ H (Negative) Diagnostic Findings Chest X-Ray 03/11/22 09:10 SINGLE VIEW CHEST CLINICAL HISTORY: Trauma. Fall. FINDINGS: An AP, portable, upright chest radiograph is obtained. No prior studies are available for comparison at the time of dictation. The examination is degraded by portable technique and apical lordotic positioning. The heart is enlarged noting atherosclerotic calcification of the thoracic aorta. There is pulmonary vascular congestion. Scarring/atelectasis is seen at the lung bases. The lungs and pleural spaces are otherwise clear. No pneumothorax is seen. The skeletal structures are osteopenic. The bony thorax is grossly intact. IMPRESSION: 1. Cardiomegaly with pulmonary vascular congestion. 2. No airspace consolidation or large pleural effusion is identified. ACT 112: Negative or not required by law. Electronically signed by: Tod Yan M.D. 03/11/2022 10:18 AM Abdomen/Pelvis CT 03/11/22 09:11 CT SCAN OF THE CHEST, ABDOMEN, AND PELVIS WITH IV CONTRAST CLINICAL HISTORY: Trauma. COMPARISON STUDY: Chest x-ray dated 03/11/2022. TECHNIQUE: Following the IV administration of 82 of Optiray 300, CT scan of the chest, abdomen, and pelvis was performed from the thoracic inlet to the proximal femora. Images are reviewed in the axial, sagittal, and coronal planes. IV contrast was administered without complication. A dose lowering technique was utilized adhering to the principles of ALARA. FINDINGS: CHEST: Thyroid: Atrophic. Thoracic aorta: There is atherosclerotic calcification of the thoracic aorta, which is normal in caliber and demonstrates standard 3-vessel arch anatomy. No dissection is seen. Pulmonary vasculature: The pulmonary trunk is normal in caliber. There are no f illing defects identified in the central pulmonary vessels to indicate pulmonary embolus. Note that this examination was not protocoled for evaluation of the pulmonary arteries. Heart: The heart is enlarged and without pericardial effusion. The coronary arteries and mitral annulus are densely calcified. Lungs and pleural spaces: There is no airspace consolidation, pleural effusion, or pneumothorax. Dependent scarring/atelectasis is noted at the lung bases. The trachea and central airways are clear. Mediastinum: There is no mediastinal hematoma or lymphadenopathy. Pattie: Clear. Axillae: There is no axillary lymphadenopathy. Bony thorax: The skeletal structures are osteopenic. There is a nondisplaced fracture of the right posterior 10th, 11th, and 12th ribs. No lytic or blastic lesions are identified. Arthritic change is seen in the shoulders. ABDOMEN AND PELVIS: Liver: The contrast-enhanced liver is enlarged, measuring 19.3 cm in length. The liver demonstrates diffusely diminished attenuation indicating hepatic steatosis. There is no intra- or extrahepatic biliary ductal dilatation. The hepatic veins and portal veins are patent. Gallbladder: Surgically absent noting clips in the gallbladder fossa. Spleen: Normal in size and attenuation. Pancreas: The pancreas is moderately atrophic. A 13 mm simple cystic lesion in the pancreatic head likely represents a small sidebranch IPMN. The duct is normal in caliber. Adrenal glands: Unremarkable. Kidneys: The contrast enhanced kidneys demonstrate mild cortical atrophy and are without hydronephrosis. The kidneys enhance symmetrically. Left renal cysts measure up to 5 cm. Additional subcentimeter cortical hypodensities also likely represent cysts but are too small for definitive characterization. Abdominal vasculature: The abdominal aorta is normal in course and caliber noting moderate to advanced atherosclerotic calcification. Stomach and bowel: There is a small hiatal hernia. There is mild to moderate colonic diverticulosis without CT evidence of acute diverticulitis. No bowel obstruction is seen. The appendix is well-visualized and normal. Peritoneum: There is no intraperitoneal free air or abdominal ascites. Lymphadenopathy: None. Pelvic viscera: The bladder is decompressed and grossly unremarkable. The uterus is surgically absent. There is a cystic lesion in the left pelvis seen on image #329. This measures approximately 4.5 x 6 x 5 cm and contains a 3.6 cm enhancing nodule seen on image #339. This is likely related to the left ovary. Small cystic foci in the right ovary measure up to 1.8 cm. Skeletal structures: The skeletal structures are osteopenic. The lumbosacral spine, bony pelvis, and proximal femora appear intact. There is moderate lumbosacral spondylosis. No lytic or blastic lesions are seen. IMPRESSION: 1. There is an approximately 6 cm cystic lesion with an enhancing mural nodule in the left adnexa. Ovarian neoplasm is the diagnosis of exclusion. Gy necological surgical evaluation is advised. 2. There are acute nondisplaced right posterior 10th, 11th, and 12th rib fractures. 3. There is no airspace consolidation, pleural effusion, or pneumothorax. 4. Cardiomegaly. 5. There is no evidence of solid organ injury in the abdomen or pelvis. 6. Hepatomegaly and hepatic steatosis. 7. Colonic diverticulosis without CT evidence of acute diverticulitis. 8. Additional findings as above. ACT 112: Positive. There are findings on this exam that require communication between the performing entity and the patient following Patient Test Result Information Act ([place] Act 112) guidelines. Electronically signed by: Tod Yan M.D. 03/11/2022 11:[address] 03/11/22 09:11 CT OF THE CERVICAL SPINE WITHOUT CONTRAST CLINICAL HISTORY: Trauma. COMPARISON STUDY: No previous studies for comparison. TECHNIQUE: Helical axial images of the cervical spine were obtained without IV contrast. Sagittal and coronal reconstructions were viewed. Automated exposure control was utilized for the study. A dose lowering technique was utilized adhering to the principles of ALARA. FINDINGS: There is reversal of the normal cervical lordosis. Vertebral body heights are maintained. No acute cervical spine fracture or subluxation is present. There is no prevertebral edema. Facet joints are intact. Severe multilevel facet arthrosis is noted. There is moderate to severe multilevel degenerative disc disease with disc space narrowing and osteophytosis. IMPRESSION: No acute cervical spine fracture or subluxation. ACT 112: Negative or not required by law. Electronically signed by: Temo Odell M.D. 03/11/2022 11:[address] 03/11/22 09:11 CT SCAN OF THE CHEST, ABDOMEN, AND PELVIS WITH IV CONTRAST CLINICAL HISTORY: Trauma. COMPARISON STUDY: Chest x-ray dated 03/11/2022. TECHNIQUE: Following the IV administration of 82 of Optiray 300, CT scan of the chest, abdomen, and pelvis was performed from the thoracic inlet to the proximal femora. Images are reviewed in the axial, sagittal, and coronal planes. IV contrast was administered without complication. A dose lowering technique was utilized adhering to the principles of ALARA. FINDINGS: CHEST: Thyroid: Atrophic. Thoracic aorta: There is atherosclerotic calcification of the thoracic aorta, which is normal in caliber and demonstrates standard 3-vessel arch anatomy. No dissection is seen. Pulmonary vasculature: The pulmonary trunk is normal in caliber. There are no filling defects identified in the central pulmonary vessels to indicate pulmonary embolus. Note that this examination was not protocoled for evaluation of the pulmonary arteries. Heart: The heart is enlarged and without pericardial effusion. The coronary arteries and mitral annulus are densely calcified. Lungs and pleural spaces: There is no airspace consolidation, pleural effusion, or pneumothorax. Dependent scarring/atelectasis is noted at the lung bases. The trachea and central airways are clear. Mediastinum: There is no mediastinal hematoma or lymphadenopathy. Pattie: Clear. Axillae: There is no axillary lymphadenopathy. Bony thorax: The skeletal structures are osteopenic. There is a nondisplaced fracture of the right posterior 10th, 11th, and 12th ribs. No lytic or blastic lesions are identified. Arthritic change is seen in the shoulders. ABDOMEN AND PELVIS: Liver: The contrast-enhanced liver is enlarged, measuring 19.3 cm in length. The liver demonstrates diffusely diminished attenuation indicating hepatic steatosis. There is no intra- or extrahepatic biliary ductal dilatation. The hepatic veins and portal veins are patent. Gallbladder: Surgically absent noting clips in the gallbladder fossa. Spleen: Normal in size and attenuation. Pancreas: The pancreas is moderately atrophic. A 13 mm simple cystic lesion in the pancreatic head likely represents a small sidebranch IPMN. The duct is normal in caliber. Adrenal glands: Unremarkable. Kidneys: The contrast enhanced kidneys demonstrate mild cortical atrophy and are without hydronephrosis. The kidneys enhance symmetrically. Left renal cysts measure up to 5 cm. Additional subcentimeter cortical hypodensities also likely represent cysts but are too small for definitive characterization. Abdominal vasculature: The abdominal aorta is normal in course and caliber noting moderate to advanced atherosclerotic calcification. Stomach and bowel: There is a small hiatal hernia. There is mild to moderate colonic diverticulosis without CT evidence of acute diverticulitis. No bowel obstruction is seen. The appendix is well-visualized and normal. Peritoneum: There is no intraperitoneal free air or abdominal ascites. Lymphadenopathy: None. Pelvic viscera: The bladder is decompressed and grossly unremarkable. The uterus is surgically absent. There is a cystic lesion in the left pelvis seen on image #329. This measures approximately 4.5 x 6 x 5 cm and contains a 3.6 cm enhancing nodule seen on image #339. This is likely related to the left ovary. Small cystic foci in the right ovary measure up to 1.8 cm. Skeletal structures: The skeletal structures are osteopenic. The lumbosacral spine, bony pelvis, and proximal femora appear intact. There is moderate lumbosacral spondylosis. No lytic or blastic lesions are seen. IMPRESSION: 1. There is an approximately 6 cm cystic lesion with an enhancing mural nodule in the left adnexa. Ovarian neoplasm is the diagnosis of exclusion. Gynecological surgical evaluation is advised. 2. There are acute nondisplaced right posterior 10th, 11th, and 12th rib fractures. 3. There is no airspace consolidation, pleural effusion, or pneumothorax. 4. Cardiomegaly. 5. There is no evidence of solid organ injury in the abdomen or pelvis. 6. Hepatomegaly and hepatic steatosis. 7. Colonic diverticulosis without CT evidence of acute diverticulitis. 8. Additional findings as above. ACT 112: Positive. There are findings on this exam that require communication between the performing entity and the patient following Patient Test Result Information Act ([place] Act 112) guidelines. Electronically signed by: Tod Yan M.D. 03/11/2022 11:[address] 03/11/22 09:11 CT head/brain wo con CLINICAL HISTORY: Trauma Technique: Contiguous axial CT images of the head were acquired from the base of the skull to the vertex without intravenous contrast administration. Images were viewed in brain, subdural and bone windows. Automated dose lowering techniques and/or adjustment according to patient size were utilized for this exam. Comparison: None available at the time of this dictation. Findings: The ventricles, basal cisterns, and cerebral sulci are normal. There is no acute intracranial hemorrhage or evidence of acute territorial infarction. Neither mass effect, shift of the midline structures, nor abnormal extra-axial fluid collections are shown. Imaged portions of the paranasal sinuses and mastoid air cells are clear. The orbits appear normal. There are no acute fractures of the calvaria or scalp swelling. Impression: No acute intracranial hemorrhage, no evidence of acute territorial infarction or other acute intracranial disease process. ACT 112: Negative or not required by law. Electronically signed by: Sawyer Johnson M.D. 03/11/2022 11:05 AM Medications Administered Home Medications acetaminophen 650 mg tablet,extended release 1,300 mg PO BID 03/11/22 [History Confirmed 03/11/22] atenolol 25 mg tablet 25 mg PO QAM 03/11/22 [History Confirmed 03/11/22] calcium carbonate 600 mg-vitamin D3 10 mcg (400 unit) tablet (Calcium 600 + D(3)) 2 tab PO QA 03/11/22 [History Confirmed 03/11/22] citalopram 20 mg tablet 20 mg PO 03/11/22 [History Confirmed 03/11/22] diphenhydramine HCl 25 mg tablet (Allergy) 25 mg PO QAM 03/11/22 [History Confirmed 03/11/22] empagliflozin 25 mg tablet (Jardiance) 25 mg PO QAM 03/11/22 [History Confirmed 03/11/22] glucosamine-chondroitin 250 mg-200 mg tablet (Osteo Bi-Flex) 2 tab PO QAM 03/11/22 [History Confirmed 03/11/22] hydrochlorothiazide 25 mg tablet 25 mg PO QAM 03/11/22 [History Confirmed 03/11/22] melatonin 10 mg capsule 10 mg PO 03/11/22 [History Confirmed 03/11/22] omeprazole 20 mg capsule,delayed release 20 mg PO QAM 03/11/22 [History Confirmed 03/11/22] simvastatin 40 mg tablet 40 mg PO HS 03/11/22 [History Confirmed 03/11/22] sitagliptin 50 mg tablet (Januvia) 50 mg PO QAM 03/11/22 [History Confirmed 03/11/22] valsartan 40 mg tablet 40 mg PO QAM 03/11/22 [History Confirmed 03/11/22] Discontinued Medications Ioversol (Optiray 300 100ml) 82 ml IV ONCE ONE Stop: 03/11/22 10:49 Last Admin: 03/11/22 10:55 Dose: 82 ml Documented By: MERCY Morphine Sulfate (Morphine Sulfate 4 Mg/Ml 1 Ml Carp\Vial) 4 mg IV NOW STA Stop: 03/11/22 09:11 Last Admin: 03/11/22 09:56 Dose: 4 mg Documented By: JUAN C Ondansetron HCl (Ondansetron Inj 2 Mg/Ml 2 Ml Vial) 4 mg IV NOW STA Stop: 03/11/22 09:11 Last Admin: 03/11/22 09:54 Dose: 4 mg Documented By: JUAN C ECG Additional Comments: Sinus rhythm with Premature atrial complexes Otherwise normal ECG No previous ECGs available Code Status & VTE Plan Code Status CODE: FULL VTE: SCDS, Heparin 5000 units sub q q12 VTE Prophylaxis Plan VTE Prophylaxis will be ordered: Yes Supervising Physician Co-Signing Physician Notes I personally saw and examined the patient. I verified all crawford points and agree with KAYLIE Beckett with the following exceptions and/or additions: 81 year old female admission for fall after losing balance in the middle of the night and three rib fracture seen on CT. O/E right lower chest pain on palpation. HS1+2, no murmurs, RRR, Chest CTAB A/P Acute non displaced three rib fractures - incentive spirometer, pain control as above Adnexal mass - discussed with patient and since she is not from this area will defer further inpatient workup but stressed to patient to follow up on this with her PCP on discharge. PG Care Time/CCT Total # of Minutes Spent Total Time Spent with Patient: Total time spent is greater than 50% in coordination of care (as documented) at patient's floor/unit and/or counseling patient: Coding Level of Care Code INT OBSERVATION CARE 70M LVL 3 Diagnoses Rib fractures S22.49XA Adnexal mass N94.89 HLD (hyperlipidemia) E78.5 Obesity E66.9 Diabetes E11.9 Depression F32.A HTN (hypertension) I10
--- NOTE | 2022-03-11 13:20 | Electrocardiogram Report ---
Test Reason : Blood Pressure : / mmHG Vent. Rate : 065 BPM Atrial Rate : 065 BPM P-R Int : 178 ms QRS Dur : 090 ms QT Int : 438 ms P-R-T Axes : 067 -14 054 degrees QTc Int : 455 ms Sinus rhythm with Premature atrial complexes Otherwise normal ECG No previous ECGs available Confirmed by Grabiel Pang ([id number]) on 03/11/2022 1:20:27 PM Referred By: REFERRED SELF Confirmed By:Grabiel Pang
[2022-03-11] MEDS ORDERED: oxyCODONE HCL IR 5 MG TAB (IMMEDIATE RELEASE) PO PRN (16:28)
[2022-03-11] MEDS ORDERED: KETOROLAC TROMETHAMINE 15 MG/ML VIAL IV PRN (16:28)
[2022-03-11] MEDS ORDERED: GLUCAGON FOR INJ 1 MG VIAL SQ PRN (16:28)
[2022-03-11] MEDS ORDERED: NALOXONE HCL 0.4 MG/1 ML VIAL/CARP IV PRN (16:28)
[2022-03-11] MEDS ORDERED: CARBOHYDRATES FOR HYPOGLYCEMIA PO PRN (16:28)
[2022-03-11] MEDS ORDERED: GLUCOSE 10 TAB/TUBE PO PRN (16:28)
[2022-03-11] MEDS ORDERED: KETOROLAC TROMETHAMINE 15 MG/ML VIAL IV ONE (16:28)
[2022-03-11] MEDS ORDERED: GLUCOSE 40% GEL 15 GM TUBE PO PRN (16:28)
[2022-03-11] MEDS ORDERED: DEXTROSE 50% 50 ML SYRINGE IV PRN (16:28)
[2022-03-11] MEDS: ACETAMINOPHEN 325 MG TAB PO SCH ×2 (16:54→21:14)
[2022-03-11] MEDS: INSULIN ASPART PER UNIT SC SCH ×2 (17:18→21:13)
[2022-03-11] MEDS: LIDOCAINE 5% 1 PATCH TD SCH (17:44)
[2022-03-11] MEDS ORDERED: MELATONIN 3 MG TAB PO SCH (21:00)
[2022-03-11] MEDS: HEPARIN SOD 5,000 UNIT/0.5 ML VIAL SQ SCH (21:13)
[2022-03-12] MEDS: ACETAMINOPHEN 325 MG TAB PO SCH (04:41)
[2022-03-12 04:50] LABS: Basophils # (auto) 0.02 K/uL (0-0.2); Basophils % (auto) 0.4 %; Eosinophils # (auto) 0.07 K/uL (0-0.50); Eosinophils % (auto) 1.4 %; Hematocrit (blood only) 36.7 % (34.1-44.9); Hemoglobin 11.8 g/dl (12.0-16.0); Immature Granulocytes # (auto) 0.02 K/uL (0.00-0.02); Immature Granulocytes % (auto) 0.4 %; Lymphocytes # (auto) 1.56 K/uL (1.2-3.4); Lymphocytes % (auto) 32.2 %; Mean Platelet Volume 9.7 fL (9.4-12.3); Monocytes # (auto) 0.47 K/uL (0.24-0.82); Monocytes % (auto) 9.7 %; Neutrophils % (auto) 55.9 %; Platelet Count 116 K/uL (130-400); White Blood Count 4.84 K/ul (4.8-10.8)
[2022-03-12 05:17] LABS: BUN Creatinine Ratio 17.7 (10-20); Calcium 8.9 mg/dl (8.5-10.1); Creatinine Clr Calc Pharmacy 44.9 ml/min; Est GFR (African American) 53.5 ml/min; Est GFR (Non-African American) 46.2 ml/min; Magnesium 2.1 mg/dl (1.7-2.4); Potassium 3.6 mmol/L (3.5-5.1)
[2022-03-12 05:32] LABS: Mean Corpuscular Hemoglobin 29.6 pg (25.0-34.0); Mean Corpuscular Hgb Conc 32.2 g/dL (32.0-36.0); Ovalocytes 1+; RDW Coefficient of Variation 12.1 % (11.5-14.5); RDW Standard Deviation 41.1 fL (36.4-46.3); Red Blood Count 3.99 M/uL (3.93-5.22)
--- NOTE | 2022-03-12 08:01 | Hospitalist Progress Note ---
Date of Service March 12, 2022 Assessment & Plan (1) Rib fractures: Plan: Acute non displaced rib fractures, without flail chest or pneumo/hemothorax - admission for pain control and pulmonary toilet - Pain control with scheduled tylneol, Lidocaine, prn toradol, prn oxy - with rescue Narcan available - Provide splinting instructions and splint to patient to assist with chest wall expansion and movement - PT/OT risk consultant (2) Adnexal mass: Plan: Incidental finding on abd/pelvis CT scan Hysterectomy in her 40s for abnormal uterine bleeding Provide imaging for discharge- follow up with PCP and OBGYN - she has not followed with OBGYN for years (3) HLD (hyperlipidemia): Plan: Continue Simvastatin (4) Obesity: Plan: Continue modification of morbidities as above glucose control lipids bp control weight loss encouraged (5) Diabetes: Plan: DMII- hold oral agents at this time - aspart sliding scale while in house (6) Depression: Plan: Controlled per patient continue escitalopram (7) HTN (hypertension): Plan: Continue ARB and HCTZ Admission and Anticipated Discharge Date Admission Date: March 11, 2022 Results & Data Results & Data ([facility]) Vital Signs (Past 12 Hours) Vital Signs Temp Pulse Pulse Resp BP BP Pulse Ox 03/12/22 07:25 36.6 C 56 L 19 124/67 92 03/12/22 03:06 36.6 C 56 L 18 111/64 91 03/12/22 00:05 61 03/11/22 22:52 36.7 C 63 18 105/63 93 O2 Del Method 03/12/22 07:25 Room Air 03/12/22 03:06 Room Air 03/12/22 00:05 03/11/22 22:52 Room Air Laboratory Results 03/12/22 03/12/22 03/12/22 Range/Units 07:48 04:25 04:25 WBC 4.84 (4.8-10.8) K/ul RBC 3.99 (3.93-5.22) M/uL Hgb 11.8 L (12.0-16.0) g/dl POC Hgb (12.0-16.0) g/dl Hct 36.7 (34.1-44.9) % POC Hct (37-47) % MCV 92.0 (80.0-100.0) fL MCH 29.6 (25.0-34.0) pg MCHC 32.2 (32.0-36.0) g/dL RDW Std Deviation 41.1 (36.4-46.3) fL RDW Coeff of Lauro 12.1 (11.5-14.5) % Plt Count 116 L (130-400) K/uL MPV 9.7 (9.4-12.3) fL Immature Gran % (Auto) 0.4 % Neut % (Auto) 55.9 % Lymph % (Auto) 32.2 % Wythe % (Auto) 9.7 % Eos % (Auto) 1.4 % Baso % (Auto) 0.4 % Neut # (Auto) 2.70 (1.4-6.5) K/uL Lymph # (Auto) 1.56 (1.2-3.4) K/uL Wythe # (Auto) 0.47 (0.24-0.82) K/uL Eos # (Auto) 0.07 (0-0.50) K/uL Baso # (Auto) 0.02 (0-0.2) K/uL Immature Gran # (Auto) 0.02 (0.00-0.02) K/uL Ovalocytes 1+ POC Sodium (135-144) mmol/L Sodium 142 (136-145) mmol/L POC Potassium (3.3-5.0) mmol/L Potassium 3.6 (3.5-5.1) mmol/L POC Chloride (101-112) mmol/L Chloride 104 (98-107) mmol/L Carbon Dioxide 33 H (21-32) mmol/L POC Total CO2 (24-31) mmol/L Anion Gap 5 (3-11) POC Anion Gap (16-25) mmol/L POC BUN (7-18) mg/dl BUN 20 (6-23) mg/dl Creatinine 1.13 (0.6-1.2) mg/dl POC Creatinine (0.6-1.3) mg/dl Est Cr Clr Drug Dosing 44.9 ml/min Est GFR ( Amer) 53.5 ml/min Est GFR (Non-Af Amer) 46.2 ml/min BUN/Creatinine Ratio 17.7 (10-20) Glucose 131 H (70-99(Fasting)) mg/dl POC Glucose 155 H (70-99) mg/dl POC Glucose (other) (70-99) mg/dl Calcium 8.9 (8.5-10.1) mg/dl POC Ioniz Calcium Juan (1.12-1.32) mmol/l Magnesium 2.1 (1.7-2.4) mg/dl Total Bilirubin (0.2-1.0) mg/dl AST (13-39) U/L ALT (7-52) U/L Alkaline Phosphatase (34-104) U/L Total Protein (6.0-8.3) gm/dl Albumin (3.4-5.0) gm/dl Globulin (2.5-4.0) gm/dl Albumin/Globulin Ratio (0.9-2) Urine Color Urine Appearance (Clear) Urine pH (4.5-7.5) Ur Specific Marcellus (1.000-1.030) Urine Protein (Negative) Urine Glucose (UA) (Negative) Urine Ketones (Negative) Urine Blood (Negative) Urine Nitrite (Negative) Urine Bilirubin (Negative) Urine Urobilinogen (Negative) Ur Leukocyte Esterase (Negative) SARS-CoV-2, RNA, NAAT (NEGATIVE) 03/11/22 03/11/22 03/11/22 Range/Units 20:09 16:42 10:58 WBC (4.8-10.8) K/ul RBC (3.93-5.22) M/uL Hgb (12.0-16.0) g/dl POC Hgb (12.0-16.0) g/dl Hct (34.1-44.9) % POC Hct (37-47) % MCV (80.0-100.0) fL MCH (25.0-34.0) pg MCHC (32.0-36.0) g/dL RDW Std Deviation (36.4-46.3) fL RDW Coeff of Lauro (11.5-14.5) % Plt Count (130-400) K/uL MPV (9.4-12.3) fL Immature Gran % (Auto) % Neut % (Auto) % Lymph % (Auto) % Wy[place] % (Auto) % Eos % (Auto) % Baso % (Auto) % Neut # (Auto) (1.4-6.5) K/uL Lymph # (Auto) (1.2-3.4) K/uL Wythe # (Auto) (0.24-0.82) K/uL Eos # (Auto) (0-0.50) K/uL Baso # (Auto) (0-0.2) K/uL Immature Gran # (Auto) (0.00-0.02) K/uL Ovalocytes POC Sodium (135-144) mmol/L Sodium (136-145) mmol/L POC Potassium (3.3-5.0) mmol/L Potassium (3.5-5.1) mmol/L POC Chloride (101-112) mmol/L Chloride (98-107) mmol/L Carbon Dioxide (21-32) mmol/L POC Total CO2 (24-31) mmol/L Anion Gap (3-11) POC Anion Gap (16-25) mmol/L POC BUN (7-18) mg/dl BUN (6-23) mg/dl Creatinine (0.6-1.2) mg/dl POC Creatinine (0.6-1.3) mg/dl Est Cr Clr Drug Dosing ml/min Est GFR ( Amer) ml/min Est GFR (Non-Af Amer) ml/min BUN/Creatinine Ratio (10-20) Glucose (70-99(Fasting)) mg/dl POC Glucose 141 H 131 H (70-99) mg/dl POC Glucose (other) (70-99) mg/dl Calcium (8.5-10.1) mg/dl POC Ioniz Calcium Juan (1.12-1.32) mmol/l Magnesium (1.7-2.4) mg/dl Total Bilirubin (0.2-1.0) mg/dl AST (13-39) U/L ALT (7-52) U/L Alkaline Phosphatase (34-104) U/L Total Protein (6.0-8.3) gm/dl Albumin (3.4-5.0) gm/dl Globulin (2.5-4.0) gm/dl Albumin/Globulin Ratio (0.9-2) Urine Color Yellow Urine Appearance Clear (Clear) Urine pH 6.5 (4.5-7.5) Ur Specific [place] 1.032 H (1.000-1.030) Urine Protein Negative (Negative) Urine Glucose (UA) 3+ H (Negative) Urine Ketones Negative (Negative) Urine Blood Negative (Negative) Urine Nitrite Negative (Negative) Urine Bilirubin Negative (Negative) Urine Urobilinogen Negative (Negative) Ur Leukocyte Esterase Negative (Negative) SARS-CoV-2, RNA, NAAT (NEGATIVE) 03/11/22 03/11/22 03/11/22 Range/Units 09:59 09:32 09:25 WBC (4.8-10.8) K/ul RBC (3.93-5.22) M/uL Hgb (12.0-16.0) g/dl POC Hgb 13.6 (12.0-16.0) g/dl Hct (34.1-44.9) % POC Hct 40 (37-47) % MCV (80.0-100.0) fL MCH (25.0-34.0) pg MCHC (32.0-36.0) g/dL RDW Std Deviation (36.4-46.3) fL RDW Coeff of Lauro (11.5-14.5) % Plt Count (130-400) K/uL MPV (9.4-12.3) fL Immature Gran % (Auto) % Neut % (Auto) % Lymph % (Auto) % Wy[place] % (Auto) % Eos % (Auto) % Baso % (Auto) % Neut # (Auto) (1.4-6.5) K/uL Lymph # (Auto) (1.2-3.4) K/uL Wythe # (Auto) (0.24-0.82) K/uL Eos # (Auto) (0-0.50) K/uL Baso # (Auto) (0-0.2) K/uL Immature Gran # (Auto) (0.00-0.02) K/uL Ovalocytes POC Sodium 142 (135-144) mmol/L Sodium 143 (136-145) mmol/L POC Potassium 4.0 (3.3-5.0) mmol/L Potassium 4.0 (3.5-5.1) mmol/L POC Chloride 101 (101-112) mmol/L Chloride 104 (98-107) mmol/L Carbon Dioxide 32 (21-32) mmol/L POC Total CO2 29 (24-31) mmol/L Anion Gap 7 (3-11) POC Anion Gap 18.0 (16-25) mmol/L POC BUN 18 (7-18) mg/dl BUN 19 (6-23) mg/dl Creatinine 1.05 (0.6-1.2) mg/dl POC Creatinine 1.0 (0.6-1.3) mg/dl Est Cr Clr Drug Dosing 48.4 ml/min Est GFR ( Amer) 58.5 ml/min Est GFR (Non-Af Amer) 50.5 ml/min BUN/Creatinine Ratio 18.1 (10-20) Glucose 178 H (70-99(Fasting)) mg/dl POC Glucose (70-99) mg/dl POC Glucose (other) 186 H (70-99) mg/dl Calcium 9.3 (8.5-10.1) mg/dl POC Ioniz Calcium Juan 1.18 (1.12-1.32) mmol/l Magnesium (1.7-2.4) mg/dl Total Bilirubin 0.7 (0.2-1.0) mg/dl AST 22 (13-39) U/L ALT 18 (7-52) U/L Alkaline Phosphatase 55 (34-104) U/L Total Protein 6.6 (6.0-8.3) gm/dl Albumin 4.1 (3.4-5.0) gm/dl Globulin 2.5 (2.5-4.0) gm/dl Albumin/Globulin Ratio 1.6 (0.9-2) Urine Color Urine Appearance (Clear) Urine pH (4.5-7.5) Ur Specific Marcellus (1.000-1.030) Urine Protein (Negative) Urine Glucose (UA) (Negative) Urine Ketones (Negative) Urine Blood (Negative) Urine Nitrite (Negative) Urine Bilirubin (Negative) Urine Urobilinogen (Negative) Ur Leukocyte Esterase (Negative) SARS-CoV-2, RNA, NAAT NEGATIVE (NEGATIVE) 03/11/22 Range/Units 09:25 WBC 8.08 (4.8-10.8) K/ul RBC 4.56 (3.93-5.22) M/uL Hgb 13.5 (12.0-16.0) g/dl POC Hgb (12.0-16.0) g/dl Hct 40.8 (34.1-44.9) % POC Hct (37-47) % MCV 89.5 (80.0-100.0) fL MCH 29.6 (25.0-34.0) pg MCHC 33.1 (32.0-36.0) g/dL RDW Std Deviation 39.9 (36.4-46.3) fL RDW Coeff of Lauro 12.2 (11.5-14.5) % Plt Count 142 (130-400) K/uL MPV 9.7 (9.4-12.3) fL Immature Gran % (Auto) 0.4 % Neut % (Auto) 81.9 % Lymph % (Auto) 12.1 % Wythe % (Auto) 5.2 % Eos % (Auto) 0.2 % Baso % (Auto) 0.2 % Neut # (Auto) 6.61 H (1.4-6.5) K/uL Lymph # (Auto) 0.98 L (1.2-3.4) K/uL Wythe # (Auto) 0.42 (0.24-0.82) K/uL Eos # (Auto) 0.02 (0-0.50) K/uL Baso # (Auto) 0.02 (0-0.2) K/uL Immature Gran # (Auto) 0.03 H (0.00-0.02) K/uL Ovalocytes POC Sodium (135-144) mmol/L Sodium (136-145) mmol/L POC Potassium (3.3-5.0) mmol/L Potassium (3.5-5.1) mmol/L POC Chloride (101-112) mmol/L Chloride (98-107) mmol/L Carbon Dioxide (21-32) mmol/L POC Total CO2 (24-31) mmol/L Anion Gap (3-11) POC Anion Gap (16-25) mmol/L POC BUN (7-18) mg/dl BUN (6-23) mg/dl Creatinine (0.6-1.2) mg/dl POC Creatinine (0.6-1.3) mg/dl Est Cr Clr Drug Dosing ml/min Est GFR ( Amer) ml/min Est GFR (Non-Af Amer) ml/min BUN/Creatinine Ratio (10-20) Glucose (70-99(Fasting)) mg/dl POC Glucose (70-99) mg/dl POC Glucose (other) (70-99) mg/dl Calcium (8.5-10.1) mg/dl POC Ioniz Calcium Juan (1.12-1.32) mmol/l Magnesium (1.7-2.4) mg/dl Total Bilirubin (0.2-1.0) mg/dl AST (13-39) U/L ALT (7-52) U/L Alkaline Phosphatase (34-104) U/L Total Protein (6.0-8.3) gm/dl Albumin (3.4-5.0) gm/dl Globulin (2.5-4.0) gm/dl Albumin/Globulin Ratio (0.9-2) Urine Color Urine Appearance (Clear) Urine pH (4.5-7.5) Ur Specific [place]cell[place] (1.000-1.030) Urine Protein (Negative) Urine Glucose (UA) (Negative) Urine Ketones (Negative) Urine Blood (Negative) Urine Nitrite (Negative) Urine Bilirubin (Negative) Urine Urobilinogen (Negative) Ur Leukocyte Esterase (Negative) SARS-CoV-2, RNA, NAAT (NEGATIVE) PG Care Time/CCT Total # of Minutes Spent Total Time Spent with Patient: Total time spent is greater than 50% in coordination of care (as documented) at patient's floor/unit and/or counseling patient: Coding Diagnoses Rib fractures S22.49XA Adnexal mass N94.89 HLD (hyperlipidemia) E78.5 Obesity E66.9 Diabetes E11.9 Depression F32.A HTN (hypertension) I10
[2022-03-12] MEDS: HEPARIN SOD 5,000 UNIT/0.5 ML VIAL SQ SCH (08:18)
[2022-03-12] MEDS: INSULIN ASPART PER UNIT SC SCH (08:23)
[2022-03-12] MEDS: LIDOCAINE 5% 1 PATCH TD SCH (08:25)
[2022-03-12] MEDS ORDERED: SIMVASTATIN 40 MG TAB PO SCH (09:00)
[2022-03-12] MEDS ORDERED: VALSARTAN 80 MG TAB PO SCH (09:00)
[2022-03-12] MEDS ORDERED: PANTOprazole 40 MG TAB PO SCH (09:00)
[2022-03-12] MEDS ORDERED: ATENOLOL 25 MG TABLET PO SCH (09:00)
[2022-03-12] MEDS ORDERED: hydroCHLOROthiazide 25 MG TAB PO SCH (09:00)
[2022-03-12] MEDS ORDERED: CITALOPRAM 20 MG TAB PO SCH (09:00)
--- NOTE | 2022-03-12 10:01 | Discharge Summary ---
Date of Service March 12, 2022 Admission HPI Per Admitting Provider 81 YOF with medical history of: Acoustic Neuroma, HTN, HLD, Hypothyroidism, DM (on oral agents), Depression, seasonal allergies, bilateral knee replacements. Patient was at the [facility], when she got up in the middle of the night to go to the bathroom, lost her balance in the tent, fell on to her right side and rolled to the other side of the tent and hit the railing on the bed. She had pain to her right lateral chest wall, got ice and tried to go back to sleep. She got up this morning in more pain and came to the EMD. In the EMD she had routine labs performed, CT scan of chest, cervical spine, head, abdomen pelvis, and CXR. She was noted to have right sided nondisplaced right posterior 10th, 11th, and 12th rib fractures, and incidental finding of 6 cm cystic lesion with an enhancing mural nodule in the left adnexa. She was given 4mg of morphine for pain without any other modality and hospitalist was consulted for admission. Patient will be admitted to medical telemetry floor for tiered pain control, deep breathing, and splinting of her rib fractures. COVID test on admission: Admission Exam Per Admitting Provider PHYSICAL EXAM: General: awake, alert, no apparent distress Head: Normocephalic, atraumatic ENT: PERRL, EOMI, no pharyngeal exudate, mucous membranes moist Neuro: AAO x 3, speech clear and appropriate, strength intact bilaterally 5/5, sensation intact and equal all extremities and dermatomes, no pronator drift Chest: equal rise and fall of the chest, no accessory muscle use, no heaves or thrills, clear to auscultation, on room air, Cardiac: Regular rate and rhythm, telemetry reviewed, skin warm dry, cap refill <3 seconds, peripheral pulses +2 no JVD, no murmur, no edema GI: NABS x 4 quadrants, soft, nontender to palpation, no rebound, guarding or tenderness : Spontaneously voiding, no pain, no CVA tenderness, MSK: right rib pain lower lateral chest wall, no cervical spine tenderness, full ROM, no hip or pelvic instability, no shoulder pain, no headache, no midline spine tenderness Psych: Normal mood and affect Skin: no rash or erythema Principal Diagnosis Rib Fractures Discharge Exam General: WN/WD female sitting up in bed, NAD HEENT: head normocephalic, atraumatic, mmm, trachea midline without deviation Chest: lidocaine patch to right lateral chest wall, ecchymosis, tender to palpation, no hematoma Resp: CTAB, diminished in the bases, no w/c/r, 92% on RA asked RN to provide incentive spirometer and blanket for splinting to allow for deep breathing/cough CV: RRR, no m/r/g, no calf edema or tenderness GI: +BS, soft, nontender : no dumont MSK/Neuro: moves all extremities, no focal deficits, answering questions appropriately, no slurred speech/facial droop, strength 5/5 throughout Psych: AOx3, pleasant and cooperative Discharge Data Allergies Allergy/AdvReac Type Severity Reaction Status Date / Time latex Allergy Intermediate Rash Unverified 03/11/22 13:02 Penicillins Allergy Intermediate Rash all Unverified 03/11/22 13:02 over body Consultations 03/11/22 12:02 ED Decision to Admit Stat Ordered Studies Chest X-Ray 03/11/22 09:10 SINGLE VIEW CHEST CLINICAL HISTORY: Trauma. Fall. FINDINGS: An AP, portable, upright chest radiograph is obtained. No prior studies are available for comparison at the time of dictation. The examination is degraded by portable technique and apical lordotic positioning. The heart is enlarged noting atherosclerotic calcification of the thoracic aorta. There is pulmonary vascular congestion. Scarring/atelectasis is seen at the lung bases. The lungs and pleural spaces are otherwise clear. No pneumothorax is seen. The skeletal structures are osteopenic. The bony thorax is grossly intact. IMPRESSION: 1. Cardiomegaly with pulmonary vascular congestion. 2. No airspace consolidation or large pleural effusion is identified. ACT 112: Negative or not required by law. Electronically signed by: Tod Yan M.D. 03/11/2022 10:18 AM Abdomen/Pelvis CT 03/11/22 09:11 CT SCAN OF THE CHEST, ABDOMEN, AND PELVIS WITH IV CONTRAST CLINICAL HISTORY: Trauma. COMPARISON STUDY: Chest x-ray dated 03/11/2022. TECHNIQUE: Following the IV administration of 82 of Optiray 300, CT scan of the chest, abdomen, and pelvis was performed from the thoracic inlet to the proximal femora. Images are reviewed in the axial, sagittal, and coronal planes. IV contrast was administered without complication. A dose lowering technique was utilized adhering to the principles of ALARA. FINDINGS: CHEST: Thyroid: Atrophic. Thoracic aorta: There is atherosclerotic calcification of the thoracic aorta, which is normal in caliber and demonstrates standard 3-vessel arch anatomy. No dissection is seen. Pulmonary vasculature: The pulmonary trunk is normal in caliber. There are no filling defects identified in the central pulmonary vessels to indicate pulmonary embolus. Note that this examination was not protocoled for evaluation of the pulmonary arteries. Heart: The heart is enlarged and without pericardial effusion. The coronary arteries and mitral annulus are densely calcified. Lungs and pleural spaces: There is no airspace consolidation, pleural effusion, or pneumothorax. Dependent scarring/atelectasis is noted at the lung bases. The trachea and central airways are clear. Mediastinum: There is no mediastinal hematoma or lymphadenopathy. Pattie: Clear. Axillae: There is no axillary lymphadenopathy. Bony thorax: The skeletal structures are osteopenic. There is a nondisplaced fracture of the right posterior 10th, 11th, and 12th ribs. No lytic or blastic lesions are identified. Arthritic change is seen in the shoulders. ABDOMEN AND PELVIS: Liver: The contrast-enhanced liver is enlarged, measuring 19.3 cm in length. The liver demonstrates diffusely diminished attenuation indicating hepatic steatosis. There is no intra- or extrahepatic biliary ductal dilatation. The hepatic veins and portal veins are patent. Gallbladder: Surgically absent noting clips in the gallbladder fossa. Spleen: Normal in size and attenuation. Pancreas: The pancreas is moderately atrophic. A 13 mm simple cystic lesion in the pancreatic head likely represents a small sidebranch IPMN. The duct is normal in caliber. Adrenal glands: Unremarkable. Kidneys: The contrast enhanced kidneys demonstrate mild cortical atrophy and are without hydronephrosis. The kidneys enhance symmetrically. Left renal cysts measure up to 5 cm. Additional subcentimeter cortical hypodensities also likely represent cysts but are too small for definitive characterization. Abdominal vasculature: The abdominal aorta is normal in course and caliber noting moderate to advanced atherosclerotic calcification. Stomach and bowel: There is a small hiatal hernia. There is mild to moderate colonic diverticulosis without CT evidence of acute diverticulitis. No bowel obstruction is seen. The appendix is well-visualized and normal. Peritoneum: There is no intraperitoneal free air or abdominal ascites. Lymphadenopathy: None. Pelvic viscera: The bladder is decompressed and grossly unremarkable. The uterus is surgically absent. There is a cystic lesion in the left pelvis seen on image #329. This measures approximately 4.5 x 6 x 5 cm and contains a 3.6 cm enhancing nodule seen on image #339. This is likely related to the left ovary. Small cystic foci in the right ovary measure up to 1.8 cm. Skeletal structures: The skeletal structures are osteopenic. The lumbosacral spine, bony pelvis, and proximal femora appear intact. There is moderate lumbosacral spondylosis. No lytic or blastic lesions are seen. IMPRESSION: 1. There is an approximately 6 cm cystic lesion with an enhancing mural nodule in the left adnexa. Ovarian neoplasm is the diagnosis of exclusion. Gynecological surgical evaluation is advised. 2. There are acute nondisplaced right posterior 10th, 11th, and 12th rib fractures. 3. There is no airspace consolidation, pleural effusion, or pneumothorax. 4. Cardiomegaly. 5. There is no evidence of solid organ injury in the abdomen or pelvis. 6. Hepatomegaly and hepatic steatosis. 7. Colonic diverticulosis without CT evidence of acute diverticulitis. 8. Additional findings as above. ACT 112: Positive. There are findings on this exam that require communication between the performing entity and the patient following Patient Test Result Information Act ([place] Act 112) guidelines. Electronically signed by: Tod Yan M.D. 03/11/2022 11:[address] 03/11/22 09:11 CT OF THE CERVICAL SPINE WITHOUT CONTRAST CLINICAL HISTORY: Trauma. COMPARISON STUDY: No previous studies for comparison. TECHNIQUE: Helical axial images of the cervical spine were obtained without IV contrast. Sagittal and coronal reconstructions were viewed. Automated exposure control was utilized for the study. A dose lowering technique was utilized adhering to the principles of ALARA. FINDINGS: There is reversal of the normal cervical lordosis. Vertebral body heights are maintained. No acute cervical spine fracture or subluxation is present. There is no prevertebral edema. Facet joints are intact. Severe multilevel facet arthrosis is noted. There is moderate to severe multilevel degenerative disc disease with disc space narrowing and osteophytosis. IMPRESSION: No acute cervical spine fracture or subluxation. ACT 112: Negative or not required by law. Electronically signed by: Temo Odell M.D. 03/11/2022 11:[address] 03/11/22 09:11 CT SCAN OF THE CHEST, ABDOMEN, AND PELVIS WITH IV CONTRAST CLINICAL HISTORY: Trauma. COMPARISON STUDY: Chest x-ray dated 03/11/2022. TECHNIQUE: Following the IV administration of 82 of Optiray 300, CT scan of the chest, abdomen, and pelvis was performed from the thoracic inlet to the proximal femora. Images are reviewed in the axial, sagittal, and coronal planes. IV contrast was administered without complication. A dose lowering technique was utilized adhering to the principles of ALARA. FINDINGS: CHEST: Thyroid: Atrophic. Thoracic aorta: There is atherosclerotic calcification of the thoracic aorta, which is normal in caliber and demonstrates standard 3-vessel arch anatomy. No dissection is seen. Pulmonary vasculature: The pulmonary trunk is normal in caliber. There are no filling defects identified in the central pulmonary vessels to indicate pulmonary embolus. Note that this examination was not protocoled for evaluation of the pulmonary arteries. Heart: The heart is enlarged and without pericardial effusion. The coronary arteries and mitral annulus are densely calcified. Lungs and pleural spaces: There is no airspace consolidation, pleural effusion, or pneumothorax. Dependent scarring/atelectasis is noted at the lung bases. The trachea and central airways are clear. Mediastinum: There is no mediastinal hematoma or lymphadenopathy. Pattie: Clear. Axillae: There is no axillary lymphadenopathy. Bony thorax: The skeletal structures are osteopenic. There is a nondisplaced fracture of the right posterior 10th, 11th, and 12th ribs. No lytic or blastic lesions are identified. Arthritic change is seen in the shoulders. ABDOMEN AND PELVIS: Liver: The contrast-enhanced liver is enlarged, measuring 19.3 cm in length. The liver demonstrates diffusely diminished attenuation indicating hepatic steatosis. There is no intra- or extrahepatic biliary ductal dilatation. The hepatic veins and portal veins are patent. Gallbladder: Surgically absent noting clips in the gallbladder fossa. Spleen: Normal in size and attenuation. Pancreas: The pancreas is moderately atrophic. A 13 mm simple cystic lesion in the pancreatic head likely represents a small sidebranch IPMN. The duct is normal in caliber. Adrenal glands: Unremarkable. Kidneys: The contrast enhanced kidneys demonstrate mild cortical atrophy and are without hydronephrosis. The kidneys enhance symmetrically. Left renal cysts measure up to 5 cm. Additional subcentimeter cortical hypodensities also likely represent cysts but are too small for definitive characterization. Abdominal vasculature: The abdominal aorta is normal in course and caliber noting moderate to advanced atherosclerotic calcification. Stomach and bowel: There is a small hiatal hernia. There is mild to moderate colonic diverticulosis without CT evidence of acute diverticulitis. No bowel obstruction is seen. The appendix is well-visualized and normal. Peritoneum: There is no intraperitoneal free air or abdominal ascites. Lymphadenopathy: None. Pelvic viscera: The bladder is decompressed and grossly unremarkable. The uterus is surgically absent. There is a cystic lesion in the left pelvis seen on image #329. This measures approximately 4.5 x 6 x 5 cm and contains a 3.6 cm enhancing nodule seen on image #339. This is likely related to the left ovary. Small cystic foci in the right ovary measure up to 1.8 cm. Skeletal structures: The skeletal structures are osteopenic. The lumbosacral spine, bony pelvis, and proximal femora appear intact. There is moderate lumbosacral spondylosis. No lytic or blastic lesions are seen. IMPRESSION: 1. There is an approximately 6 cm cystic lesion with an enhancing mural nodule in the left adnexa. Ovarian neoplasm is the diagnosis of exclusion. Gynecological surgical evaluation is advised. 2. There are acute nondisplaced right posterior 10th, 11th, and 12th rib fractures. 3. There is no airspace consolidation, pleural effusion, or pneumothorax. 4. Cardiomegaly. 5. There is no evidence of solid organ injury in the abdomen or pelvis. 6. Hepatomegaly and hepatic steatosis. 7. Colonic diverticulosis without CT evidence of acute diverticulitis. 8. Additional findings as above. ACT 112: Positive. There are findings on this exam that require communication between the performing entity and the patient following Patient Test Result Information Act ([place] Act 112) guidelines. Electronically signed by: Tod Yan M.D. 03/11/2022 11:[address] 03/11/22 09:11 CT head/brain wo con CLINICAL HISTORY: Trauma Technique: Contiguous axial CT images of the head were acquired from the base of the skull to the vertex without intravenous contrast administration. Images were viewed in brain, subdural and bone windows. Automated dose lowering techniques and/or adjustment according to patient size were utilized for this exam. Comparison: None available at the time of this dictation. Findings: The ventricles, basal cisterns, and cerebral sulci are normal. There is no acute intracranial hemorrhage or evidence of acute territorial infarction. Neither mass effect, shift of the midline structures, nor abnormal extra-axial fluid collections are shown. Imaged portions of the paranasal sinuses and mastoid air cells are clear. The orbits appear normal. There are no acute fractures of the calvaria or scalp swelling. Impression: No acute intracranial hemorrhage, no evidence of acute territorial infarction or other acute intracranial disease process. ACT 112: Negative or not required by law. Electronically signed by: Sawyer Johnson M.D. 03/11/2022 11:05 AM Hospital Course (1) Rib fractures: Acute non displaced rib fractures, without flail chest or pneumo/hemothorax Admitted for pain control/pulmonary toilet Upon eval in AM prior to d/c patient had not been provided incentive spirometer or blanket to help split/cough/deep breathing. Provided and encouraged continued use at discharge to prevent pneumonia No increased SOB/fever/sputum production at all Pain control -- given morphine/toradol in ER, additional 1x dose toradol given in AM but controlled with prn oxycodone and lidocaine patch and can continue tylenol for baseline control and oxycodone for breakthrough at discharge and sent rx for lidocaine patch as well Offered continued monitoring but continued control and wanting to go after lunch. Is from [place] (has family local, was visiting for [employer]) -- burnt CD for f/u PCP at home as well as for adnexal mass incidentally found on CTAP on admission. Monitor for s/sx pneumonia or when to return to ER were discussed with patient and family at bedside (2) Adnexal mass: Incidental finding on abd/pelvis CT scan Hysterectomy in her 40s for abnormal uterine bleeding Provide imaging for discharge- follow up with PCP and OBGYN - she has not followed with OBGYN for years Burnt CD for f/u with [facility] [facility]EL[facility] closer to home at [place], rec'd US for follow- up/further eval outpatient (3) HLD (hyperlipidemia): Continued Simvastatin (4) Obesity: Continue modification of morbidities as above, encouraged weight loss/BP control at d/c and low salt diet (5) Diabetes: Held oral agents while inpatient and used SSI On Januvia and Jardiance PO [employer]ATOR --> resumed at discharge (6) Depression: Controlled per patient and escitalopram continued (7) HTN (hypertension): Continued ARB and HCTZ Hx Acoustic neuroma, radiation ~10 years ago, has had follow up reported, no issues with balance causing fall in tent and was attempting to get up from sleep to use bathroom when she tripped and fell. F/u PCP routine Plan discharged home with and family continued pain control sent at d/c and encouraged continued use of incentive spirometer (discussed proper use as well) and what to monitor for/return if concerns for developing pneumonia Total Time Total Time Spent Total Time Spent (In Minutes): 40 Discharge Plan Discharge Items Patient Disposition: Home - Self-Care Reason For Visit: BROKEN RIBS PAIN CONTROL Discharge Diagnosis: Broken Ribs Goals: You have been hospitalized for an acute medical problem. During your stay at [facility], we have made an effort to correct the problem that brought you to the hospital while keeping you as comfortable as possible. Medications were used to bring your condition under control and your discharge instructions will include directions for any medications you should take after leaving the hospital. Please make sure you see your Primary Care Provider as part of your follow up plan. Activity: As commented below Non-emergency contact: Primary Care Provider Call non-emergency contact if: you have any medication questions, your symptoms worsen, your pain is not controlled, your pain is concerning for you and you have a fever Follow-up/Referrals: PCP,NO [Physician] - Diet: Carb Consistent or DM2 and Heart Healthy Addtl Attending Provider Instructions: You have been hospitalized for pain control after a fall and sustaining several rib fractures. You have been provided topical lidocaine patches and oral oxycodone as needed. You can continue Tylenol 1000mg by mouth every 8 hours for underlying control and use the oxycodone for breakthrough. Please note, that these medications can cause constipation and you can use over the counter miralax, colace to help with this. Rib fractures can put you at risk for developing a pneumonia if not taking deep breaths. You should continue the incentive spirometer every hour for 10 breaths to help prevent this. You should also use a blanket wrapped up to help splint the fractures so to reduce pain when coughing/deep breathing. Please monitor for any fevers, sputum production, increased shortness of breath which could represent a pneumonia. You have also had an incidental finding of on imaging near your ovary. You have been provided a CD for your imaging to follow up with your PCP at home and referral to PROMOTION[employer] MARKETING ANALYST for an ultrasound for further evaluation. Please follow up with your PCP in the next 7-10 days to monitor your progress after discharge. Please return to the ER for any uncontrolled pain, fever, chest pain, shortness of breath or any other symptoms concerning for you. Take care! Pending Studies at Discharge: No Stand-Alone Forms: My [facility], Opioid Pain Management Medications and DC Order Prescriptions: New lidocaine 5 % Adhesive Patch,Medicated 1 patch transdermal QAM Qty: 15 0RF oxycodone 5 mg Tablet 5 mg PO Q6H PRN (Reason: pain) Qty: 16 0RF acetaminophen 500 mg capsule 1,000 mg PO Q8H Qty: 10 0RF Continued atenolol 25 mg tablet 25 mg PO QAM simvastatin 40 mg tablet 40 mg PO HS citalopram 20 mg tablet 20 mg PO HS hydrochlorothiazide 25 mg tablet 25 mg PO QAM valsartan 40 mg tablet 40 mg PO QAM Januvia 50 mg tablet 50 mg PO QAM Jardiance 25 mg tablet 25 mg PO QAM diphenhydramine HCl [Allergy] 25 mg Tablet 25 mg PO QAM omeprazole 20 mg Capsule,Delayed Release(Dr/Ec) 20 mg PO QAM glucosamine-chondroitin [Osteo Bi-Flex] 250-200 mg Tablet 2 tab PO QAM calcium carbonate-vitamin D3 [Calcium 600 + D(3)] 600 mg-10 mcg (400 unit) Tablet 2 tab PO QAM melatonin 10 mg Capsule 10 mg PO HS Discontinued acetaminophen [Tylenol Arthritis] 650 mg Tablet Extended Release 1,300 mg PO BID Discharge Orders: Discharge Order (Routine); Ordered 03/12/22 Ordered By: Nita Armijo Admission Data Admit Date/Time: 03/11/22 12:10 Attending Provider: Camelia Kim Admit Provider: Stew Roberts Primary Care Provider: Afia Chan I. Other Providers: Stew Roberts Other Interventions: Discharge Summary Assessment (RN) Last Done: 03/12/22 10:59 Supervising Physician Co-Signing Physician Notes PA Supervision Note: I did not personally see or examine the patient today, but I verified all crawford points of FLORECITA Armijo's assessment and plan with the following exceptions/additions: None Coding Level of Care Code 52931 OBS Care - Discharge Diagnoses Rib fractures S22.49XA Adnexal mass N94.89 HLD (hyperlipidemia) E78.5 Obesity E66.9 Diabetes E11.9 Depression F32.A HTN (hypertension) I10
[2022-03-12] MEDS ORDERED: KETOROLAC TROMETHAMINE 15 MG/ML VIAL IV ONE (10:09)
[2022-03-12] MEDS ORDERED: POLYETHYLENE (MIRALAX) 17 GM PACK PO SCH (10:15)
[2022-03-12] MEDS ORDERED: DOCUSATE SODIUM/SENNA 50/8.6MG TAB PO SCH (10:15)
== END 2022-03-12 12:43 | disposition home or self-care (01) ==
LOC: 4W 09:03 → ED 09:03 → SUATTDRO 12:10 → 4W 17:30